=== PATIENT | female | born 1985 | race Caucasian/White ===

== ENCOUNTER 2020-05-24 12:44 | Emergency (ER) | payer MEDICAID ==
[~2020-05-24] VITALS: Ht 177.8 cm; Wt 91.0 kg
[2020-05-24] MEDS ORDERED: dicyclomine 10 MG capsule PO ONE (15:00)
[2020-05-24 15:27] LABS: BASOPHILS % (AUTO) 0.1 % (0-1); EOSINOPHILS % (AUTO) 0.2 % (0-6); HEMATOCRIT 40.1 % (35.0-45.0); HEMOGLOBIN 13.2 g/dl (12.0-16.0); LYMPHOCYTES # (AUTO) 3.1 X10'3 (1.1-4.8); LYMPHOCYTES % (AUTO) 31.8 % (21-51); MEAN CORPUSCULAR HEMOGLOBIN 30.1 PG (27.0-31.0); MEAN CORPUSCULAR HGB CONC 32.9 g/dL (33.0-36.5); MEAN CORPUSCULAR VOLUME 91.5 FL (78-98); MEAN PLATELET VOLUME 10.5 FL (7.4-10.4); MONOCYTES # (AUTO) 0.5 X10'3 (0-0.9); MONOCYTES % (AUTO) 5.7 % (2-12); NEUTROPHILS % (AUTO) 62.2 % (42-75); PLATELET COUNT 292 X10'3 (140-440); RED BLOOD COUNT 4.38 X10'6 (4.20-5.60); RED CELL DISTRIBUTION WIDTH 13.2 % (11.5-14.5); WHITE BLOOD COUNT 9.6 X10'3 (4.5-11.0)
[2020-05-24 15:34] LABS: URINE HCG NEGATIVE (NEG)
[2020-05-24 15:46] LABS: ALBUMIN 3.6 G/DL (3.4-5.0); ANION GAP 8 (8-16); BLOOD UREA NITROGEN 9 MG/DL (7-18); BUN/CREATININE RATIO 11.5 (6.6-38.0); CALCIUM 8.9 MG/DL (8.5-10.1); CHLORIDE 103 MMOL/L (99-107); CREATININE 0.78 MG/DL (0.40-0.90); GLUCOSE 83 MG/DL (70-104); POTASSIUM 3.7 MMOL/L (3.5-5.1); SODIUM 137 MMOL/L (135-145); TOTAL CARBON DIOXIDE 26.4 MMOL/L (24-32); eGFR 85 ML/MIN
[2020-05-24] MEDS ORDERED: iohexol 300mg/ml 100ml inj. ONE (15:46)
[2020-05-24 16:32] LABS: LARGE PLATELETS FEW; PLATELET ESTIMATE NORMAL
[2020-05-24] MEDS ORDERED: DICY10CA88 PO (16:43)
[2020-05-24 16:45] VITALS: BP 140/72
[2020-05-24 17:01] LABS: OCCULT BLOOD STOOL NEGATIVE (Neg)
== END 2020-05-24 16:53 | disposition home or self-care (01) ==
LOC: ER 12:45
DX: K52.89 Other specified noninfective gastroenteritis and colitis (principal); K62.5 Hemorrhage of anus and rectum; R11.0 Nausea; R10.84 Generalized abdominal pain; F12.90 Cannabis use, unspecified, uncomplicated; F19.90 Other psychoactive substance use, unspecified, uncomplicated; F17.200 Nicotine dependence, unspecified, uncomplicated; Z90.89 Acquired absence of other organs; Z88.0 Allergy status to penicillin; Z88.6 Allergy status to analgesic agent; Z88.8 Allergy status to other drugs, medicaments and biological substances; Z79.899 Other long term (current) drug therapy
CPT/HCPCS: 36415; 74177; 80048; 81025; 82272; 85025; 99285; Q9967

== ENCOUNTER 2021-10-12 13:37 | Emergency (ER) | payer BC, MEDICAID ==
[~2021-10-12] VITALS: Ht 177.8 cm; Wt 94.7 kg
[2021-10-12 14:21] VITALS: BP 132/87
[2021-10-12 14:57] LABS: CLARITY,URINE SLIGHTLY CLOUDY (Clear); COLOR,URINE YELLOW (Yellow); GLUCOSE, URINE NEGATIVE (Neg); KETONES,URINE >=80 mg/dl (Neg); LEUKOCYTE ESTERASE ,URINE NEGATIVE (Neg); NITRITES, URINE NEGATIVE (Neg); OCCULT BLOOD,URINE NEGATIVE (Neg); PROTEIN,URINE NEGATIVE (Neg); UROBILINOGEN,URINE 0.2 E.U/dL (0.2-1.0)
[2021-10-12 14:58] LABS: URINE HCG NEGATIVE (NEG)
[2021-10-12 15:08] LABS: UA COLLECTION TYPE CLN CATCH MIDSTREAM
[2021-10-12 15:09] LABS: BACTERIA,URINE 1+ /HPF (Neg); MUCUS STRANDS MODERATE /LPF (Neg); RBC,URINE 0-2 /HPF (0-2); SQUAMOUS EPITHELIAL CELL,UR MODERATE /LPF (FEW); WBC,URINE 0-4 /HPF (0-4)
[2021-10-12 15:15] LABS: BASOPHILS % (AUTO) 0.6 % (0-1); EOSINOPHILS % (AUTO) 0 % (0-6); HEMATOCRIT 39.9 % (35.0-45.0); HEMOGLOBIN 13.7 g/dl (12.0-16.0); LYMPHOCYTES # (AUTO) 0.8 X10'3 (1.1-4.8); MEAN CORPUSCULAR HGB CONC 34.4 g/dL (33.0-36.5); MEAN CORPUSCULAR VOLUME 90.2 FL (78-98); MEAN PLATELET VOLUME 9.9 FL (7.4-10.4); MONOCYTES # (AUTO) 0.6 X10'3 (0-0.9); MONOCYTES % (AUTO) 7.9 % (2-12); NEUTROPHILS # (AUTO) 5.7 X10'3 (1.8-7.7); NEUTROPHILS % (AUTO) 80.5 % (42-75); PLATELET COUNT 307 X10'3 (140-440); RED BLOOD COUNT 4.43 X10'6 (4.20-5.60); RED CELL DISTRIBUTION WIDTH 13.9 % (11.5-14.5)
[2021-10-12 15:28] LABS: ALANINE AMINOTRANSFERASE 36 U/L (12-78); ALBUMIN 3.9 G/DL (3.4-5.0); ALBUMIN/GLOBULIN RATIO 0.9 (1.1-1.5); ALKALINE PHOSPHATASE 93 IU/L (46-116); ANION GAP 11 (8-16); BILIRUBIN,TOTAL 0.4 MG/DL (0.1-1.0); BLOOD UREA NITROGEN 12 MG/DL (7-18); BUN/CREATININE RATIO 14.8 (6.6-38.0); CALCIUM 9.2 MG/DL (8.5-10.1); CHLORIDE 98 MMOL/L (99-107); CREATININE 0.81 MG/DL (0.40-0.90); GLUCOSE 96 MG/DL (70-104); LIPASE < 50 U/L (73-393); SODIUM 132 MMOL/L (135-145); TOTAL CARBON DIOXIDE 23.4 MMOL/L (24-32); TOTAL PROTEIN 8.2 G/DL (6.4-8.2); eGFR 80 ML/MIN
[2021-10-12 15:29] LABS: ASPARTATE AMINO TRANSFERASE 43 U/L (10-37); POTASSIUM 4.1 MMOL/L (3.5-5.1)
[2021-10-12 16:52] LABS: TOTAL CELLS COUNTED 100
[2021-10-12 16:53] LABS: LARGE PLATELETS FEW; PLATELET ESTIMATE NORMAL; STOMATOCYTES 1+
[2021-10-12 17:00] LABS: HYPERSEGMENTED NEUTROPHILS FEW
== END 2021-10-12 16:45 | disposition home or self-care (01) ==
LOC: ER 13:38
DX: U07.1 COVID-19 (principal); R10.84 Generalized abdominal pain; R50.9 Fever, unspecified; R51.9 Headache, unspecified; F12.90 Cannabis use, unspecified, uncomplicated; F19.90 Other psychoactive substance use, unspecified, uncomplicated; Z90.89 Acquired absence of other organs; Z88.0 Allergy status to penicillin; Z88.8 Allergy status to other drugs, medicaments and biological substances
CPT/HCPCS: 36415; 80053; 81001; 81025; 82948; 83690; 85007; 85025; 87635; 99283; C9803

== ENCOUNTER 2023-02-22 16:57 | Emergency (ER) | payer BC, MEDICAID ==
[~2023-02-22] VITALS: Ht 177.8 cm; Wt 74.8 kg
[2023-02-22 17:05] VITALS: BP 156/89
[2023-02-22 17:50] LABS: BASOPHILS # (AUTO) 0.1 X10'3 (0-0.2); EOSINOPHILS % (AUTO) 0.4 % (0-6); HEMATOCRIT 40.2 % (35.0-45.0); HEMOGLOBIN 13.6 g/dl (12.0-16.0); LYMPHOCYTES % (AUTO) 43.2 % (21-51); MEAN CORPUSCULAR HEMOGLOBIN 30.8 PG (27.0-31.0); MEAN CORPUSCULAR HGB CONC 33.9 g/dL (33.0-36.5); MEAN CORPUSCULAR VOLUME 90.9 FL (78-98); MEAN PLATELET VOLUME 9.7 FL (7.4-10.4); MONOCYTES # (AUTO) 0.5 X10'3 (0-0.9); MONOCYTES % (AUTO) 5.2 % (2-12); NEUTROPHILS # (AUTO) 4.7 X10'3 (1.8-7.7); NEUTROPHILS % (AUTO) 50.2 % (42-75); PLATELET COUNT 320 X10'3 (140-440); RED BLOOD COUNT 4.42 X10'6 (4.20-5.60); RED CELL DISTRIBUTION WIDTH 13.5 % (11.5-14.5); WHITE BLOOD COUNT 9.4 X10'3 (4.5-11.0)
[2023-02-22 18:05] LABS: ALANINE AMINOTRANSFERASE 25 U/L (12-78); ALBUMIN 3.7 G/DL (3.4-5.0); ALBUMIN/GLOBULIN RATIO 0.9 (1.1-1.5); ALKALINE PHOSPHATASE 84 IU/L (46-116); ANION GAP 4 (8-16); ASPARTATE AMINO TRANSFERASE 20 U/L (10-37); BILIRUBIN,TOTAL 0.5 MG/DL (0.1-1.0); BLOOD UREA NITROGEN 13 MG/DL (7-18); BUN/CREATININE RATIO 16.7 (10.0-20.0); CALCIUM 8.7 MG/DL (8.5-10.1); CHLORIDE 101 MMOL/L (99-107); CREATININE 0.78 MG/DL (0.40-0.90); GLUCOSE 84 MG/DL (70-104); LIPASE 58 U/L (73-393); POTASSIUM 3.5 MMOL/L (3.5-5.1); SODIUM 136 MMOL/L (135-145); TOTAL CARBON DIOXIDE 30.7 MMOL/L (24-32); TOTAL PROTEIN 7.6 G/DL (6.4-8.2); eGFR 84 ML/MIN
[2023-02-22 18:34] LABS: COLOR,URINE YELLOW (Yellow); GLUCOSE, URINE NEGATIVE (Neg); KETONES,URINE NEGATIVE (Neg); LEUKOCYTE ESTERASE ,URINE NEGATIVE (Neg); NITRITES, URINE NEGATIVE (Neg); OCCULT BLOOD,URINE NEGATIVE (Neg); PROTEIN,URINE NEGATIVE (Neg); UROBILINOGEN,URINE 0.2 E.U/dL (0.2-1.0)
[2023-02-22 18:35] LABS: URINE HCG NEGATIVE (NEG)
[2023-02-22 18:41] LABS: CLARITY,URINE SLIGHTLY CLOUDY (Clear); UA COLLECTION TYPE CLN CATCH MIDSTREAM
[2023-02-22 18:42] LABS: BACTERIA,URINE 2+ /HPF (Neg); MUCUS STRANDS FEW /LPF (Neg); RBC,URINE NONE SEEN /HPF (0-2); SQUAMOUS EPITHELIAL CELL,UR MODERATE /LPF (FEW)
[2023-02-22] MEDS ORDERED: iohexol 300mg/ml 100ml inj. ONE (19:11)
[2023-02-22] MEDS ORDERED: ONDA4TAB12 PO (20:28)
[2023-02-22] MEDS ORDERED: DICY10CA88 PO (20:28)
[2023-02-22] MEDS ORDERED: OXYC-145 PO (20:28)
[2023-02-22] MEDS ORDERED: oxyCODONE/APAP 5-325mg tablet PO ONE (20:30)
[2023-02-22] MEDS ORDERED: dicyclomine 10 MG capsule PO ONE (20:30)
[2023-02-22] MEDS ORDERED: ondansetron 4mg rapidly disintigrating tab PO ONE (20:30)
[2023-02-22] MEDS ORDERED: SULF1TAB49 PO (20:47)
[2023-02-22] MEDS ORDERED: sulfamethoxazole/trimethoprim DS (800/160mg) tablet PO ONE (20:50)
== END 2023-02-22 21:03 | disposition home or self-care (01) ==
LOC: ER 16:58
DX: N39.0 Urinary tract infection, site not specified (principal); R10.32 Left lower quadrant pain; F12.90 Cannabis use, unspecified, uncomplicated; Z90.49 Acquired absence of other specified parts of digestive tract; Z88.0 Allergy status to penicillin; Z88.8 Allergy status to other drugs, medicaments and biological substances; Z79.899 Other long term (current) drug therapy
CPT/HCPCS: 36415; 74177; 80053; 81001; 81025; 83690; 85025; 87088; 99285; J3490; Q9967; 99284